=== PATIENT | male | born 1955 | race Caucasian/White ===

== ENCOUNTER 2017-12-13 12:47 | Emergency (ER) | payer OTHER ==
[2017-12-13] MEDS ORDERED: DIPHTH/TET/ACEL PERTUSS (ADULT) 0.5 ML VIAL IM* (13:30)
== END 2017-12-13 14:38 | disposition home or self-care (01) ==
LOC: FTE 12:47
DX: T15.91XA Foreign body on external eye, part unspecified, right eye, initial encounter (principal); X58.XXXA Exposure to other specified factors, initial encounter; Y92.9 Unspecified place or not applicable
CPT/HCPCS: 65205; 99283-25

== ENCOUNTER 2018-07-31 05:03 | Emergency (ER) | payer OTHER | END 2018-07-31 07:17 | disposition home or self-care (01) | LOC: FTE 05:03 | DX: S40.021A Contusion of right upper arm, initial encounter (principal); V18.4XXA Pedal cycle driver injured in noncollision transport accident in traffic accident, initial encounter; Y92.410 Unspecified street and highway as the place of occurrence of the external cause | CPT/HCPCS: 73060; 73060-RT; 99283-25 ==

== ENCOUNTER 2018-12-03 19:29 | Inpatient (IN) | payer OTHER ==
[2018-12-03] MEDS ORDERED: APIXABAN 5 MG TABLET PO (21:00)
[2018-12-03 21:26] LABS: ADD MAN DIFF? NO
[2018-12-03 21:27] LABS: BASOPHIL # 0.1 10^3/ul (0.0-0.1); EOSINOPHILS # 0.3 10^3/ul (0.0-0.5); EOSINOPHILS % 3.9 % (0.0-7.0); HEMATOCRIT 39.7 % (42.0-52.0); HEMOGLOBIN 12.9 g/dl (14.0-18.0); LYMPHOCYTES # 1.9 10^3/ul (0.8-2.9); LYMPHOCYTES % 24.6 % (15.0-51.0); MEAN CORPUSCULAR HEMOGLOBIN 31.8 pg (29.0-33.0); MEAN CORPUSCULAR HGB CONC 32.5 g/dl (32.0-37.0); MEAN CORPUSCULAR VOLUME 97.8 fl (82.0-101.0); MEAN PLATELET VOLUME 9.7 fl (7.4-10.4); MONOCYTE # 0.7 10^3/ul (0.3-0.9); NEUTROPHIL # 4.7 10^3/ul (1.6-7.5); NEUTROPHILS % 60.9 % (39.0-77.0); PLATELET COUNT 180 10^3/UL (140-415); RED BLOOD COUNT 4.06 10^6/ul (4.70-6.10); RED CELL DISTRIBUTION WIDTH 12.5 % (11.5-14.5)
[2018-12-03 21:27] LABS: WHITE BLOOD COUNT 7.8 10^3/ul (4.8-10.8)
[2018-12-03 21:45] LABS: ANION GAP 8 (5-13); BLOOD UREA NITROGEN 13 mg/dl (7-20); CALCIUM 9.3 mg/dl (8.4-10.2); CARBON DIOXIDE 27 mmol/L (21-31); CHLORIDE 108 mmol/L (97-110); CREATININE 0.99 mg/dl (0.61-1.24); Estimated GFR > 60 mL/min (>60); GLUCOSE 100 mg/dl (70-220); POTASSIUM 4.7 mmol/L (3.5-5.1); SODIUM 143 mmol/L (135-144)
[2018-12-03 21:51] LABS: INR 0.91; PARTIAL THROMBOPLASTIN TIME 27.6 Sec (23.0-35.0); PROTIME 12.4 Sec (11.9-14.9)
[2018-12-03] MEDS ORDERED: BISACODYL (EC) 5 MG TAB PO (22:30)
[2018-12-03] MEDS ORDERED: ONDANSETRON 4 MG INJ IV (22:30)
[2018-12-03] MEDS ORDERED: DOCUSATE SODIUM 100 MG CAP PO (22:30)
[2018-12-03] MEDS ORDERED: ACETAMINOPHEN 325 MG TAB PO (22:30)
[2018-12-03] MEDS ORDERED: NACL 0.9% 3 ML SYG IV (22:30)
[2018-12-03] MEDS: ENOXAPARIN 100 MG/ML SYG SC (22:40)
[2018-12-03] MEDS: LORAZEPAM 1 MG TAB PO (22:45)
[2018-12-03] MEDS: MULTIVITAMINS 10 ML, THIAMINE 100 MG, FOLIC ACID 1 MG in SOD CHLORIDE 0.9% 1,000 ML IVPB (23:00)
[2018-12-03] MEDS: IODIXANOL LOCM 100 ML BTL (23:47)
[2018-12-03] MEDS: SOD CHLORIDE 0.9% 100 ML (23:47)
[2018-12-04 05:39] LABS: ADD MAN DIFF? NO
[2018-12-04 05:44] LABS: WHITE BLOOD COUNT 7.3 10^3/ul (4.8-10.8)
[2018-12-04 05:44] LABS: BASOPHIL # 0.1 10^3/ul (0.0-0.1); EOSINOPHILS # 0.3 10^3/ul (0.0-0.5); EOSINOPHILS % 4.6 % (0.0-7.0); HEMATOCRIT 39.6 % (42.0-52.0); HEMOGLOBIN 12.6 g/dl (14.0-18.0); LYMPHOCYTES # 1.8 10^3/ul (0.8-2.9); LYMPHOCYTES % 24.6 % (15.0-51.0); MEAN CORPUSCULAR HEMOGLOBIN 31.5 pg (29.0-33.0); MEAN CORPUSCULAR HGB CONC 31.8 g/dl (32.0-37.0); MONOCYTE # 0.7 10^3/ul (0.3-0.9); MONOCYTES % 9.1 % (0.0-11.0); NEUTROPHIL # 4.4 10^3/ul (1.6-7.5); NEUTROPHILS % 59.9 % (39.0-77.0); PLATELET COUNT 167 10^3/UL (140-415); RED CELL DISTRIBUTION WIDTH 12.7 % (11.5-14.5)
[2018-12-04 06:17] LABS: ALANINE AMINOTRANSFERASE 22 IU/L (13-69); ALBUMIN 3.2 g/dl (3.3-4.9); ALBUMIN/GLOBULIN RATIO 1.06; ALKALINE PHOSPHATASE 48 IU/L (42-121); ANION GAP 10 (5-13); ASPARTATE AMINO TRANSFERASE 30 IU/L (15-46); BILIRUBIN,INDIRECT 0.6 mg/dl (0-1.1); BILIRUBIN,TOTAL 0.6 mg/dl (0.2-1.3); BLOOD UREA NITROGEN 12 mg/dl (7-20); CALCIUM 8.8 mg/dl (8.4-10.2); CARBON DIOXIDE 22 mmol/L (21-31); CHLORIDE 111 mmol/L (97-110); CHOLESTEROL 155 mg/dl (100-200); CREATININE 0.82 mg/dl (0.61-1.24); Estimated GFR > 60 mL/min (>60); GLUCOSE 97 mg/dl (70-220); HDL CHOLESTEROL 31 mg/dl (30-78); LDL CHOLESTEROL,CALCULATED 99 mg/dl; MAGNESIUM 2.2 mg/dl (1.7-2.5); POTASSIUM 4.6 mmol/L (3.5-5.1); SODIUM 143 mmol/L (135-144); TOTAL PROTEIN 6.2 g/dl (6.1-8.1); TRIGLYCERIDES 125 mg/dl (0-149)
[2018-12-04 07:02] LABS: HEMOGLOBIN A1C 5.1 % (0-5.9)
[2018-12-04] MEDS: MULTIVITAMINS 10 ML, THIAMINE 100 MG, FOLIC ACID 1 MG in SOD CHLORIDE 0.9% 1,000 ML IVPB (09:00)
[2018-12-04] MEDS: ENOXAPARIN 100 MG/ML SYG SC ×2 (09:26→20:24)
[2018-12-04] MEDS: HYDROCODONE/APAP (5/325) TAB PO (17:00)
[2018-12-05] MEDS: ENOXAPARIN 100 MG/ML SYG SC ×2 (08:17→21:19)
[2018-12-05 16:01] LABS: ANA SCREEN NEGATIVE (NEGATIVE)
[2018-12-05 17:36] LABS: HOMOCYSTEINE - CARDIOVASCULAR 10.6 umol/L (<11.4)
[2018-12-06] MEDS: ENOXAPARIN 100 MG/ML SYG SC (08:27)
[2018-12-06 14:31] LABS: ANTI-THROMBIN III 28 mg/dL (19-30)
[2018-12-07 09:53] LABS: CARDIOLIPIN AB - IGA <11 APL; CARDIOLIPIN AB - IGG <14 GPL; CARDIOLIPIN AB - IGM <12 MPL
== END 2018-12-06 13:32 | disposition home or self-care (01) | DRG 299 ==
LOC: 6WM 22:27 → FTE 19:29
DX: I82.4Z1 Acute embolism and thrombosis of unspecified deep veins of right distal lower extremity (principal); I26.99 Other pulmonary embolism without acute cor pulmonale; E78.5 Hyperlipidemia, unspecified; E66.9 Obesity, unspecified; Z68.32 Body mass index [BMI] 32.0-32.9, adult; I10 Essential (primary) hypertension; M10.9 Gout, unspecified; F10.20 Alcohol dependence, uncomplicated; Z79.01 Long term (current) use of anticoagulants
CPT/HCPCS: 36415; 71275; 80048; 80053; 80061; 81240; 83036; 83090; 83735; 83890; 84443; 85025; 85300; 85302; 85305; 85610; 85613; 85730; 86038; 86147; 93005; 93971; 99285-25; G0378

== ENCOUNTER 2018-12-11 07:48 | Emergency (ER) | payer OTHER | END 2018-12-11 08:39 | disposition home or self-care (01) | LOC: E/R 07:48 | DX: I82.401 Acute embolism and thrombosis of unspecified deep veins of right lower extremity (principal) | CPT/HCPCS: 99282; Z7502 ==

== ENCOUNTER 2019-01-03 17:49 | Emergency (ER) | payer OTHER | END 2019-01-03 19:00 | disposition home or self-care (01) | LOC: E/R 17:49 | DX: I82.403 Acute embolism and thrombosis of unspecified deep veins of lower extremity, bilateral (principal) | CPT/HCPCS: 99282; Z7502 ==

== ENCOUNTER 2019-01-14 17:56 | Emergency (ER) | payer OTHER ==
[2019-01-14 18:42] LABS: ADD MAN DIFF? NO
[2019-01-14 18:50] LABS: BASOPHIL # 0.1 10^3/ul (0.0-0.1); BASOPHILS % 1.1 % (0.0-2.0); EOSINOPHILS # 0.3 10^3/ul (0.0-0.5); EOSINOPHILS % 3.9 % (0.0-7.0); HEMOGLOBIN 13.4 g/dl (14.0-18.0); LYMPHOCYTES # 2.2 10^3/ul (0.8-2.9); MEAN CORPUSCULAR HEMOGLOBIN 31.6 pg (29.0-33.0); MEAN CORPUSCULAR HGB CONC 32.7 g/dl (32.0-37.0); MEAN CORPUSCULAR VOLUME 96.7 fl (82.0-101.0); MEAN PLATELET VOLUME 9.5 fl (7.4-10.4); MONOCYTE # 0.8 10^3/ul (0.3-0.9); MONOCYTES % 11.3 % (0.0-11.0); NEUTROPHIL # 3.7 10^3/ul (1.6-7.5); PLATELET COUNT 240 10^3/UL (140-415); RED BLOOD COUNT 4.24 10^6/ul (4.70-6.10); RED CELL DISTRIBUTION WIDTH 12.6 % (11.5-14.5)
[2019-01-14 18:50] LABS: WHITE BLOOD COUNT 7.2 10^3/ul (4.8-10.8)
[2019-01-14 19:11] LABS: INR 0.92; PROTIME 12.5 Sec (11.9-14.9)
[2019-01-14 19:12] LABS: PARTIAL THROMBOPLASTIN TIME 27.9 Sec (23.0-35.0)
[2019-01-14 19:27] LABS: ALANINE AMINOTRANSFERASE 63 IU/L (13-69); ALBUMIN/GLOBULIN RATIO 1.11; ALKALINE PHOSPHATASE 56 IU/L (42-121); ANION GAP 7 (5-13); ASPARTATE AMINO TRANSFERASE 39 IU/L (15-46); BILIRUBIN,INDIRECT 0.4 mg/dl (0-1.1); BILIRUBIN,TOTAL 0.4 mg/dl (0.2-1.3); BLOOD UREA NITROGEN 11 mg/dl (7-20); CALCIUM 9.2 mg/dl (8.4-10.2); CARBON DIOXIDE 29 mmol/L (21-31); CHLORIDE 104 mmol/L (97-110); Estimated GFR > 60 mL/min (>60); GLUCOSE 87 mg/dl (70-220); POTASSIUM 4.2 mmol/L (3.5-5.1); SODIUM 140 mmol/L (135-144); TOTAL PROTEIN 7.6 g/dl (6.1-8.1)
== END 2019-01-14 19:37 | disposition home or self-care (01) ==
LOC: E/R 19:37
DX: I82.409 Acute embolism and thrombosis of unspecified deep veins of unspecified lower extremity (principal)
CPT/HCPCS: 80053; 85025; 85610; 85730; 99283